=== PATIENT | female | born 1970 | race Caucasian/White ===

== ENCOUNTER 2025-04-23 15:51 | Outpatient (CLI) | payer BC, SELFPAY ==
--- NOTE | ~2025-04-23 | MM_ITS ---
EXAMINATION: MM screening joan BI w hugo HISTORY: Screening mammogram TECHNIQUE: Craniocaudal and mediolateral oblique 3-D tomosynthesis images were obtained and synthetic 2-D images were generated. CAD analysis was submitted and interpreted. COMPARISON: No prior mammogram is available for comparison at this institution. BREAST PARENCHYMAL COMPOSITION:Not Dense. There are scattered areas of fibroglandular density. FINDINGS: No suspicious mass, calcification, or architectural distortion are identified in either jennifer ast to suggest malignancy. There has been no suspicious interval change. IMPRESSION: No mammographic evidence of malignancy. Recommend routine screening mammography in one year. BI-RADS Category 1: Negative Reviewed, dictated and finalized at location .
== END 2025-04-23 15:52 | disposition home or self-care (01) ==
LOC: MICIMG 15:52
PROVIDERS: PCP Obstetrics & Gynecology Gynecology; Visit Provider Obstetrics & Gynecology Gynecology
DX: Z12.31 Encounter for screening mammogram for malignant neoplasm of breast (principal)
CPT/HCPCS: 77063; 77067

== ENCOUNTER 2025-08-29 08:18 | Outpatient (CLI) | payer OTHER, SELFPAY ==
--- OUTSIDE RECORDS SUMMARY | 2022-06-21 03:14 | XMS_ITS | Continuity of Care Document ---
Author Organization [facility] Address [address] [place] [phone] Phone Care Team Providers Care Finisher Machine Name Role Phone Ariel Albert MD Unavailable Unavailable Allergies, Adverse Reactions, Alerts Substance Reaction Status Criticality No Known Drug Allergies Active No I nformation Medications Medication Instructions Dosage Effective Dates (start - stop) Status Comments Advil 200 mg tablet as needed - Active melatonin 5 mg tablet as needed - Active Procedures Procedure Date Level Iv-surg Path Gross/t, Lvl IV [facility] Facility Charge Colonoscopy Flex; W/remov Les- 22 Moderate Sedation - Endoscopy 2 Helicobact Pylori Breath Fabienne 15 Offic Cons New/estab Mod Bld Ct; Hg/pltlt Ct Auto/compl 15 Comp Metabolic Panel Lipase Helicobact Pylori Breath Fabienne 11 Helicobac P-breath Anal; Drug 1 Offic/outpt E&m Estab Minor Ugi Endo; W/bx 1/mx Special Stains; Grp I Microorg 11 Level Iv-surg Path Gross/micro 11 ASC Facility Charge Offic/outpt E&m New Mod-hi 45 1 Advance Directives Directive Yes / No Effective Date File Name No Information Encounters Encounter Description Practice Location Reason(s) For Visit Diagnoses Date Provider Providers Copied on Encounter [facility], [address] [place], [place], [id number] tel:[phone] [facility] No Information 2 Bety George. [address] [place] [address], [id number], [place]. tel:[phone] [facility], [address] [place] [address], [id number] tel:[phone] [facility] No Information 2 Kamryn Nagy. [address] [place] [address], [id number], [place]. tel:[phone] Referring Provider: Yakov Jimenez, [address] [place] [address], [id number]. tel:[phone] [facility], [address] [place] [address], [id number] tel:[phone] [facility] No Information 2 [facility]. [address] [place] [address], [id number], [place]. tel:[phone] Referring Provider: Yakov Jimenez, [address] [place] [address], [id number]. tel:[phone] [facility], [address] [place] [address], [id number] tel:[phone] [facility] Benign neoplasm of transverse colonBenign neoplasm of sigmoid colonEncount er for screening for malignant neoplasm of colon 2 Kamryn Nagy. [address] [place] [address], [id number], [place]. tel:[phone] Referring Provider: Yakov Jimenez, [address] [place] [address], [id number]. tel:[phone] [facility], [address] [place] [address], [id number] tel:[phone] [facility] No Information 5 Des MARREROP-JESSIE Kennedy. [address] [place] [address], [id number], [place]. tel:[phone] Referring Provider: Referred Self. Offic Cons New/estab Mod [facility], [address] [place] [address], [place], [place], [id number] tel:[phone] [facility] abdominal pain (chief complaint) Abdominal Pain, site NOSNausea and vomiting 5 [facility] Marcia. [address] [place] [address], [id number], [place]. tel:[phone] Referring Provider: Referred Self. [facility], [address] [place] [address], [id number] tel:[phone] [facility] [employer] No Information 5 [facility] Marcia. [address] [place] [address], [id number], [place]. tel:[phone] Referring Provider: Referred Self. [facility], [address] [place] [address], [id number] tel:[phone] [facility] [employer] No Information 1 Luis Angel anand [address] [place] [address], [id number], [place]. tel:[phone] Referring Provider: Referred Self. Offic/outpt E&m Estab Minor [facility], [address] [place] [address], [place], [place], [id number] tel:[phone] [facility] Gastritis w/o hemorrhageAb dominal Pain, site NOS 1 Luis Angel anand [address] [place] [address], [id number], [place]. tel:[phone] Referring Provider: Referred Self. [facility], [address] [place] [address], [id number] tel:[phone] [facility] [employer] Gastritis w/o hemorrhageDu odenitis w/o hemorrhage 1 Luis Angel anand [address] [place] [address], [id number], [place]. tel:[phone] Referring Provider: Referred Self. [facility], [address] [place] [address], [id number] tel:[phone] [facility] [employer] No Information 1 Luis Angel anand [address] [place] [address], [id number], . tel:[phone] Referring Provider: Referred Self. [facility], [address] [place] [address], [id number] tel:[phone] [facility] No Information 1 [facility]. [address] [place] [address], [id number], [place]. tel:[phone] Referring Provider: Camden Plasencia MD , [address] [place] [address], [id number]. tel:[phone] Offic/outpt E&m New Mod-hi 45 [facility], [address] [place] [address], [id number] tel:[phone] [facility] [employer] Abdominal Pain, site NOSHeartburn 1 Luis Angel anand [address] [place] [address], [id number], [place]. tel:[phone] Referring Provider: Referred Self. Family History Family Member Type Diagnosis Age At Onset Son Problem (finding) Colon polyps Mother Problem (finding) Colon polyps Brother Problem (finding) Alive and well Father Problem (finding) unknown history (Cause Of ) Mother Problem (finding) HTN, heart disease Problem (finding) No family history of Ca ncer, colon Payers Payer name Insurance type Covered constitution party ID Authoriza tion(s) [facility] PPO BL [id number] Social History Type Description Quantity Date Captured Comments Sex Female Smoking Status No Information Chief Complaint And Reason For Visit No Information Reason For Referral Reason For Referral No Information Plan Of Treatment Date Type Action Status Patient Education Colon Polyps: Care Inst ructions completed History Of Present Illness Encounter Date Complaint History Of Prese nt Illness abdominal pain Mrs. Sánchez is a 45-year-old, white female who presents with intermittent nausea, and sometimes vomiting and diarrhea. She reports intermittent flu-like symptoms over the last six months. This has happened approximately four times, and will last 1-2 days when it occurs. Symptoms include mild epigastric abdominal pain, nausea, and sometimes vomiting, and diarrhea. This happened most recently last night and she can't identify any apparent correllation to her symptoms and foods, bowel habits or activities. However, she is having her menstrual cycle and feels there may be a correllation to this and the onset of her symptoms. This trajectory is reminescent of when she was diagnosed with h. pylori in 2010, and she is concerned about a possible reinfection. There is no weight loss or appetite changes. She has a bowem movement 1-2 times daily and this is formed and easily passed. She does not do anything to improve her symptoms, but thinks milk will improve them. She does not regularly use NSAIDs. She has had no recent lab work or testing done. She does not have a primary care physician. Functional Status Date Functional Assessmen t No Information Instructions Date Instruction Additional Infor janine Start omeprazole 20m g QD #30+3 after urea breath test Related to Abdominal Pain, site NOS Assessments Type Assessment Date No Information Patient Care Teams Name Effective Dates (start - stop) Status Members No Information
--- NOTE | ~2025-08-29 | DEXA_ITS ---
Bone Density Report Name: KALE REMY Age: 55 Sex: Female Ethnicity: White Date of : 1970 Indication: postmenopausal; screening for osteoporosis; asthma or emphysema; hysterectomy; Referring Provider: CHAR ANDUJAR Study: Bone densitometry was performed. Exam Date: August 29, 2025 Accession number: [id number] Bone Density: Region BMD T-score Z-score Classification AP Spine(L1-L4) 0.966 -0.7 0.4 Normal Femoral Neck (Left) 0.789 -0.5 0.5 Normal Total Hip (Left) 1.037 0.8 1.5 Normal Femoral Neck (Right) 0.793 -0.5 0.6 Normal Total Hip (Right) 1.005 0.5 1.2 Normal Total Hip Mean 1.021 0.7 1.4 Normal World Health Organization criteria for BMD impression classify patients as: Normal (T-score at or above -1.0), Osteopenia (T-score between -1.0 and -2.5), or Osteoporosis (T-score at or below -2.5). 10-year Fracture Risk: FRAX not reported because: All T-scores for Spine Total, Hip Total, Femoral Neck at or above -1.0 Clinical Information Provided by Patient: Has used the following medications: Vitamin D, Calcium Has the following medical conditions: Asthma or Emphysema, Hysterectomy Patient maximum height was 67 Menopause Age: 36 Does not regularly consume dairy products Drinks caffeinated beverages Onset of menses at age 12 Number of children 3 Impression: The patient has normal bone mass. Discussion: BONE DENSITY IS ABOVE THE MINIMUM DESIRABLE LEVEL AT ALL SKELETAL SITES TESTED. This patient?s bone mineral density is above the minimum desirable level (T-score -1.0 or better) at all sites measured. The patient should follow a healthful lifestyle (good nutrition with adequate calcium and vitamin D, and appropriate weight-bearing exercise). Follow-Up: Consider repeating this study in 5 years or sooner if there is some new clinical indication. Reported by: RICH on 08/29/2025 9:04:00 AM. Reviewed, dictated and finalized at location A.
--- OUTSIDE RECORDS SUMMARY | 2025-08-29 08:36 | XMS_ITS | Encounter Summary ---
Author Organization [facility] Address [address] [place] [address] Care Team Providers Care Interventionist Name Role Phone Unavailable Primary Care Provider Unavailabl e Encounter Details Date Type Department Care Team (Late st Contact Info) Description 02/06/2019 Lab Requisition [facility] [address] [facility] [place] [id number] Abhijeet Roman PA-C [address] [place] [phone] Social History Tobacco Use Types Packs/Day Years Used Date Smoking Tobacco: Never Alcohol Use Standard Drinks/Week Comments Yes 0.8 (1 standard drink = 0.6 oz p ure alcohol) Comments Unknown Sex and Gender Information Value Date Recorded Sex Assigned at Not on file 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 Gender Identity Not on file Sexual Orientation Not on file documented as of this encounter Plan of Treatment Not on file documented as of this encounter Procedures Procedure Name Priority Date/Time Associated Diagnosis Comments DERMATOPATHOLOGY Routine 02/05/2019 12:0 0 AM CDT documented in this encounter Results * DERMATOPATHOLOGY (02/05/2019 12:00 AM CDT) Case Report Dermatopathology Report Case: [id number] Authorizing Provider: Abhijeet Roman PA-C Collected: 02/05/2019 12:00 AM Pathologist: David Cooper MD Received: 02/06/2019 08:35 AM Specimen: Skin, nose 3:48 PM CDT DERMATOPATHOLOGY LABORATORY Final Diagnosis Specimen A. 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 3:48 PM CDT DERMATOPATHOLOGY LABORATORY Gross Description Specimen A: Received is one formalin filled container labeled with the patient's name and designated nose. The specimen consists of a shave biopsy measuring 11x6x3 mm. Jar 0. 3:48 PM CDT DERMATOPATHOLOGY LABORATORY Microscopic Description Specimen A. SKIN, nose: There are nests of melanocytes at the dermal-epidermal junction and within the dermis. 3:48 PM CDT DERMATOPATHOLOGY LABORATORY Disclaimer An external and internal positive and negative controls are appropriate for the histochemical, immunohistochemical and immunofluorescence stain(s) in this case (if any), except where stated explicitly. The performance characteristics of the stain(s) cited in this report were developed and its performance characteristic determined by the Dermatopathology Laboratory at [facility], directed by Dr. Brianna Cooper. These tests need not be, and therefore are not, approved by the [place] Food and Drug Administration. The tests are used for clinical purposes. Billing Codes Specimen Charges Stain Charges 33980 1 3:48 PM CDT DERMATOPATHOLOGY LABORATORY Embedded Images 3:48 PM CDT DERMATOPATHOLOGY LABORATORY Pathology/Cytolog y TISSUE SPECIMEN FROM SKIN / Unknown 02/05/2019 02/06/2019 8:35 AM CDT us Abhijeet Roman PA-C LAB - PATHOLOGY/CYTOLOGY ORDERAB LES Final Result DERMATOPATHOLOGY LABORATORY [facility] - Department of Dermatology [address] [facility] [facility] [place] [address], [facility] [phone] documented in this encounter Visit Diagnoses Not on filedocumented in this encounter
--- OUTSIDE RECORDS SUMMARY | 2025-08-29 08:36 | XMS_ITS | Encounter Summary ---
Author Organization [facility] Address [facility] [facility] [place] [address] Care Team Providers Care Hookman Name Role Phone Unavailable Primary Care Provider Unavailabl e Encounter Details Date Type Department Care Team (Late st Contact Info) Description 12/24/2018 Lab Requisition [facility] [address] [facility] [place] [id number] Abhijeet Roman PA-C [facility] [phone] Social History Tobacco Use Types Packs/Day Years Used Date Smoking Tobacco: Never Alcohol Use Standard Drinks/Week Comments Yes 0.8 (1 standard drink = 0.6 oz p ure alcohol) Comments Unknown Sex and Gender Information Value Date Recorded Sex Assigned at Not on file 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 Gender Identity Not on file Sexual Orientation Not on file documented as of this encounter Plan of Treatment Not on file documented as of this encounter Procedures Procedure Name Priority Date/Time Associated Diagnosis Comments DERMATOPATHOLOGY Routine 12/20/2018 12:0 0 AM MANUFACTURING LABORER documented in this encounter Results * DERMATOPATHOLOGY (12/20/2018 12:00 AM MANUFACTURING LABORER) Case Report Dermatopathology Report Case: [id number] Authorizing Provider: Abhijeet Roman PA-C Collected: 12/20/2018 12:00 AM Pathologist: David Cooper MD Received: 12/24/2018 07:06 AM Specimen: Skin, face 9 5:17 PM CDT DERMATOPATHOLOGY LABORATORY Final Diagnosis Specimen A. SKIN, face: SEBACEOUS HYPERPLASIA (L73.8) 5:17 PM CDT DERMATOPATHOLOGY LABORATORY at 1717 CDT Clinical History Congenital. 5:17 PM CDT DERMATOPATHOLOGY LABORATORY Gross Description Specimen A: Received is one formalin filled container labeled with the patient's name and designated face. The specimen consists of a shave biopsy measuring [id number]. Jar 0. 5:17 PM CDT DERMATOPATHOLOGY LABORATORY Microscopic Description Specimen A. SKIN, face: There are prominent sebaceous gland lobules surrounding a dilated hair follicle. 5:17 PM CDT DERMATOPATHOLOGY LABORATORY Disclaimer An external and internal positive and negative controls are appropriate for the histochemical, immunohistochemical and immunofluorescence stain(s) in this case (if any), except where stated explicitly. The performance characteristics of the stain(s) cited in this report were developed and its performance characteristic determined by the Dermatopathology Laboratory at [facility], directed by Dr. Brianna Cooper. These tests need not be, and therefore are not, approved by the [place] Food and Drug Administration. The tests are used for clinical purposes. Billing Codes Specimen Charges Stain Charges 66317 1 5:17 PM CDT DERMATOPATHOLOGY LABORATORY Embedded Images 5:17 PM CDT DERMATOPATHOLOGY LABORATORY Pathology/Cytolog y TISSUE SPECIMEN FROM SKIN / Unknown 12/20/2018 12/24/2018 7:06 AM CDT us Abhijeet Roman PA-C LAB - PATHOLOGY/CYTOLOGY ORDERAB LES Final Result DERMATOPATHOLOGY LABORATORY [facility] - Department of Dermatology [facility] [facility] [address] [place] [address], [facility] [phone] documented in this encounter Visit Diagnoses Not on filedocumented in this encounter
--- OUTSIDE RECORDS SUMMARY | 2025-08-29 08:36 | XMS_ITS | Clinical Summary ---
Author Organization [facility] Address [address] [place] [address] Care Team Providers Care Funeral Pre Need Consultant Name Role Phone Unavailable Primary Care Provider Unavailabl e Social History Tobacco Use Types Packs/Day Years Used Date Smoking Tobacco: Never Assessed Comments Unknown Sex and Gender Information Value Date Recorded Sex Assigned at Not on file Legal Sex Female 8:18 PM CDT Gender Identity Not on file Sexual Orientation Not on file Plan of Treatment Health Maintenance Due Date Last Done Comments Cervical Cancer Screening Pa p Smear (Age 30 to 64) Every 3 Years 1970 Colorectal Cancer Screening Colonoscopy (10 Years) 1970 Annual Physical 1973 Hepatitis C 01/24/1988 DTaP, Tdap and Td Vaccines ( 1 - Tdap) 1989 Hepatitis B Vaccines (1 of 3 - 19+ 3-dose series) 1989 Cervical Cancer Screening Pa p with HPV Testing (Age 30 to 64) Every 5 Years 01/24/2000 Cervical Cancer Screening with HPV 01/24/2000 Mammogram Screening 2010 Pneumococcal Vaccine: 50+ Ye ars (1 of 1 - PCV) 01/24/2020 Zoster Vaccines (1 of 2) 01/24/2020 COVID-19 Vaccine (2024-2 6 season) 2025 Influenza Adult (#1) 2025 Hepatitis A Vaccines Aged Out No long er eligible based on patient's age to complete this topic Meningococcal B Vaccine Aged Out No l onger eligible based on patient's age to complete this topic Meningococcal Vaccine Aged Out No anu duane eligible based on patient's age to complete this topic RSV Immunizations Under 20 Months Aged Out No longer eligible based on patient's age to complete this topic
--- OUTSIDE RECORDS SUMMARY | 2025-08-29 08:36 | XMS_ITS | Clinical Summary ---
Author Organization [facility] Address [address] [place] [phone] Care Team Providers Care Pumpman Name Role Phone Abhijeet Roman Primary Care Provider [phone] Allergies Active Allergy Reactions Criticality Noted Date Comments Latex Unknown 02/05/2019 Medications QUEtiapine (SEROquel) 25 mg tablet 25 mg as needed Active DULoxetine DR (CYMBALTA) 60 mg capsule 1 capsule (60 mg total) daily Active fexofenadine (JAXON) 180 mg tablet 1 tablet (180 mg total) daily Active cholecalciferol (VITAMIN D-3) 5,000 unit capsule Take 1 capsule (5,000 Units total) by mouth daily Active albuterol HFA (PROVENTIL HFA,VENTOLIN HFA,PROAIR HFA) 90 mcg/actuation inhaler Inhale 2 puffs every 8 (eight) hours as needed for wheezing As needed 1 each 3 02/28/2022 Active benzonatate (Tessalon Perles) 100 mg capsuleIndicati ons:Cough Take 1 capsule (100 mg total) by mouth 3 (three) times a day as needed for cough 30 capsule 1 02/28/2022 Active atorvastatin (LIPITOR) 10 mg tablet Take 1 tablet (10 mg total) by mouth daily 30 tablet 5 03/24/2022 Active metFORMIN XR (GLUCOPHAGE XR) 500 mg 24 hr tablet Take 1 tablet (500 mg total) by mouth daily 11/20/2024 Active Active Problems Problem Noted Date Diagnosed Date Obstructive sleep apnea 06/17/2025 Snoring 01/21/2025 Assessment & Plan (01/21/2025 1:14 PM CDT): The patient presents with snoring and non restorative sleep. Per her request, I have ordered a home sleep test and she will follow up here in 4 months. Accessory skin tags 02/28/2022 Assessment & Plan (02/28/2022 4:26 PM CDT): Verbal permission received, skin tags froze with LN2, skin care discussed BMI 29.0-29.9,adult 03/20/2019 Encounter for general adult medical examination with abnormal findings 03/19/2019 Assessment & Plan (02/28/2022 4:15 PM CDT): HEALTHCARE MAINTENANCE updated Assessment & Plan (03/24/2020 11:33 AM CDT): HEALTHCARE MAINTENANCE updated, mammogram and colonoscopy ordered, labs good last year, repeat next year Atypical nevi 02/04/2019 Assessment & Plan (02/28/2022 4:15 PM CDT): Skin care Assessment & Plan (02/21/2022 4:44 PM CDT): x3 Assessment & Plan (03/24/2020 11:33 AM CDT): Skin care, no nevi of concern today Arthralgia 08/07/2018 Assessment & Plan (03/24/2020 11:33 AM CDT): Stable, will follow Chronic rhinitis 08/07/2018 Encounter for general adult medical examination without abnormal findings 08/07/2018 Encounter for immunization 08/07/2018 Intractable migraine without status migrainosus 08/07/2018 Assessment & Plan (02/28/2022 4:15 PM CDT): Controlled with as needed meds Assessment & Plan (03/24/2020 11:34 AM CDT): Controlled with hydration and meds Mild intermittent asthma without complication Assessment & Plan (02/28/2022 4:15 PM CDT): Well controlled Cephalalgia 06/18/2013 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 Extrinsic asthma 11/14/2012 Assessment & Plan (02/28/2022 4:15 PM CDT): Controlled with inhalers Assessment & Plan (03/24/2020 11:33 AM CDT): Controlled with as needed meds Allergic rhinitis due to pollen 11/14/2012 Other allergy status, other than to drugs and biological substances 10/02/2012 Uncomplicated asthma 10/02/2012 Other diseases of vocal cords 09/17/2012 Never smoked tobacco 08/25/2011 Overview (01/25/2018): Description: 11/29/11 confirmed Encounters Date Type Department Care Team Description 06/17/2025 11:30 AM CDT Office Visit [facility] Pulmonary [address] [place] [phone] Felisa Hdez NP Obstructive sleep apnea (Primary Dx) from Last 3 Months Immunizations Immunization Administration Dates Next Due Influenza, Quadrivalent, Rec ombinant, Egg Free, Preservative Free, Intramuscular 08/07/2018 Influenza, Quadrivalent, Spl it, Preservative Free, Intramuscular 10/27/2021 Influenza, Unspecified 10/27/2021,2020(Deferred: Patient Refused),07/16/2019(Deferred: Patient decision),08/07/2018 Surgical History Surgery Date Site/Laterality Comments CHOLECYSTECTOMY ABLATION TUBAL LIGATION HYSTERECTOMY Medical History Medical History Date Comments High cholesterol Prediabetes Anxiety Asthma Vocal cord dysfunction Chronic bronchitis (HCC) Migraines Sinus infection Family History Medical History Relation Name Comments Arthritis Father Heart disease Father Hypertension Father Coronary artery disease Maternal Grandfather Diabetes Maternal Grandmother Arthritis Mother Thyroid disease Mother Migraines Sister Relation Name Status Comments Father Alive Maternal Grandfather Maternal Grandmother Mother Alive Paternal Grandfather Paternal Grandmother Sister Alive Social History Tobacco Use Types Packs/Day Years Used Date Smoking Tobacco: Never Tobacco Cessation:Counseling Given: Not Answered Alcohol Use Standard Drinks/Week Comments Never 0 (1 standard drink = 0.6 oz pur e alcohol) AUDIT-C Answer Date Recorded Q1: How often do you have a drink containing alc ohol? 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 Gender Identity Female 03/13/2019 10:30 AM CDT Sexual Orientation Straight 03/13/2019 10 :30 AM CDT Last Filed Vital Signs Vital Sign Reading Time Taken Comments Blood Pressure 122/70 06/17/2025 11:39 AM CDT Pulse 72 06/17/2025 11:39 AM CDT Temperature 36.6 C (97.8 F) 06/17/2025 11:39 AM CDT Respiratory Rate 18 06/17/2025 11:39 AM CDT Oxygen Saturation 95% 06/17/2025 11:39 AM CDT Inhaled Oxygen Concentration - - Weight 98.9 kg (218 lb) 06/17/2025 11:39 AM CDT Height 170.2 cm (5' 7) 06/17/2025 11:39 AM CDT Body Mass Index 34.14 06/17/2025 11:39 AM CDT Plan of Treatment Health Maintenance Due Date Last Done Comments Breast Cancer Screening-Mammogram 1970 Colon Cancer Screening-Colonoscopy 1970 Hepatitis C Screening 1970 DTaP/Tdap/Td Vaccine (1 - Tdap) 1981 Hepatitis B Screening 01/24/1988 Pneumococcal vaccine <65 (1 of 2 - PCV) 1989 Zoster Vaccine (1 of 2) 01/24/2020 Depression Screening 02/21/2023 02/21/2022, 03/20/20 19 Regular Well Visit/Exam 18-64 02/28/2023, 03/24/2020, 03/20/2019 Covid-19 Vaccine (4 - 2024-2 6 season) 2025 10/27/2021, 02/03/2021, 01/06/2021 Influenza Vaccine (#1) 2025 , 10/27/2021, 08/07/2018, Additional history exists Insurance [facility] CHOICE [facility] PL[facility] Care Teams Pumpman Relationship Specialty Start Date End Date Abhijeet Roman PA PCP - General 03/15/19
--- OUTSIDE RECORDS SUMMARY | 2025-08-29 08:36 | XMS_ITS | Clinical Summary ---
Author Organization [facility] Address [address] [place] [address] Care Team Providers Care [place] Former Name Role Phone Unavailable Primary Care Provider Unavailabl e Source Comments [facility],non-owned Affiliates and Associated Physician Practices is amultiple site organization consisting of ambulatory clinics and hospital sitesin [place], [place]. This disclosure is being madepursuant to the Care Everywhere program and may not contain all information available regarding this patient. Last updated 18.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 Family History Medical History Relation Name Comments Arthritis - Rheumatoid Father Hearing Loss Father Heart Disease Father High Cholesterol Father Arthritis - Rheumatoid Mother Diabetes Mother Osteoporosis Mother Thyroid Disease Mother Anxiety Disorder Other self Status: Ali ve Asthma Other self Status: Alive Depression Other self Status: Alive Hearing Loss Other self Status: Alive High Cholesterol Other self Status: Ali ve Relation Name Status Comments Father Mother Other self Social History Tobacco Use Types Packs/Day Years Used Date Smoking Tobacco: Never Alcohol Use Standard Drinks/Week Comments Yes 0.8 (1 standard drink = 0.6 oz p ure alcohol) Comments Unknown Sex and Gender Information Value Date Recorded Sex Assigned at Not on file Legal Sex Female 6:52 PM [employer] Gender Identity Not on file Sexual Orientation Not on file Plan of Treatment Health Maintenance Due Date Last Done Comments COLOGLYNN (AGES 45-75) - COL ON CA SCREENING 1970 COLON MONITORING 1970 COLONOSCOPY - COLON CA SCREENING 1970 CT COLONOGRAPHY - COLON CA SCREENING 1970 Colorectal Cancer Screening 1970 FIT - COLON CA SCREENING 1970 FLEX SIG - COLON CA SCREENING 1970 LIPID TESTING 1970 MAMMOGRAM 1970 HIV SCREENING 1985 HEPATITIS C SCREENING 01/19/1988 DTAP/TDAP/TD VACCINES (1 - Tdap) 1989 HEPATITIS B VACCINE (1 of 3 - 19+ 3-dose series) 1989 PAP SMEAR 1991 Cervical Cancer Screening 01/24/2000 PAP with HPV 01/24/2000 PNEUMOCOCCAL VACCINE 50+ (1 of 1 - PCV) 01/24/2020 ZOSTER VACCINE (1 of 2) 01/24/2020 DEPRESSION SCREENING 10/16/2024 COVID-19 VACCINE (1 - 2024-2 6 season) 2025 INFLUENZA VACCINE (#1) 2025 HIB VACCINE Aged Out No longer eligi ble based on patient's age to complete this topic HPV VACCINE Aged Out No longer eligi ble based on patient's age to complete this topic MENINGOCOCCAL (Group B) VACC INE SHARED DECISION-MAKING Aged Out No longer eligibl e based on patient's age to complete this topic MENINGOCOCCAL GROUPS A/C/Y/W VACCINE Aged Out No longer eligible b ased on patient's age to complete this topic Insurance [facility]
== END 2025-08-29 08:19 | disposition home or self-care (01) ==
LOC: ANHFOHIMG 08:24
PROVIDERS: Visit Provider Obstetrics & Gynecology Gynecology
DX: Z78.0 Asymptomatic menopausal state (principal)
CPT/HCPCS: 77080